=== PATIENT | female | born 1945 | race Caucasian/White ===

== ENCOUNTER 2017-01-18 12:52 | Inpatient (IN) | payer OTHER ==
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
--- NOTE | 2017-01-18 14:18 | EDPHY ---
H & P Smoking Status: Never smoked Time Seen by Provider: 01/18/17 14:00 HPI/ROS: CHIEF COMPLAINT: Here for ECT HISTORY OF PRESENT ILLNESS: 71-year-old female with a history of depression presents for medical clearance for ECT. She has a long history of depression and is unable to take antidepressive medications. Recently the depression has worsened and she has decided to try ECT. She has ongoing intermittent suicidal ideation, but no active suicidal ideation and no plan. She has occasional homicidal ideation, but not recently. No recent illness. She has a history of hypothyroidism, without change in medications. REVIEW OF SYSTEMS: Constitutional: No fever, no chills Eyes: No visual changes ENT: No sore throat Respiratory: No cough, no shortness of breath Cardiac: No chest pain Gastrointestinal: No nausea, no vomiting, no abdominal pain Genitourinary: no dysuria Musculoskeletal: No leg pain or swelling Skin: No rash Neurological: No headache, no weakness (Khadra Kaufman) Past Medical/Surgical History: Depression Hypothyroidism (Kharda Kaufman) Social History: (Khadra Kaufman) Physical Exam: General Appearance: Alert, pleasant, smiling Eyes: Pupils equal and round, no conjunctival pallor or injection ENT, Mouth: Mucous membranes moist Neck: Normal inspection Respiratory: Lungs are clear to auscultation Cardiovascular: Regular rate and rhythm Gastrointestinal: Abdomen is soft and nontender Neurological: A&O, nonfocal, normal gait Skin: Warm and dry, no rash Extremities: Nontender, no pedal edema Psychiatric: Mood and affect normal (Khadra Kaufman) Constitutional: Initial Vital Signs Temperature (C) 36.5 C 01/18/17 13:06 Heart Rate 58 L 01/18/17 13:06 Respiratory Rate 20 01/18/17 13:06 Blood Pressure 135/98 H 01/18/17 13:06 O2 Sat (%) 98 01/18/17 13:06 O2 Delivery Mode Room Air Allergies/Adverse Reactions: Kkzpuwj-Rsb-Vlo Reductase Inhibitor Allergy (Verified 01/18/17 13:04) pain meds Allergy (Uncoded 01/18/17 13:05) psychotropics Allergy (Uncoded 01/18/17 13:05) Home Medications: Medication Instructions Recorded Levothyroxine 01/18/17 Timolol 0.25% 01/18/17 Vitamin B12 01/18/17 Medical Decision Making - Diagnostics EKG Interpretation: EKG interpreted by me reveals sinus rhythm, rate 53, left anterior fascicular block, poor R-wave progression. (Khadra Kaufman) ED Course/Re-evaluation: The patient has been medically cleared. She has been accepted for voluntary psychiatric hospitalization here at [facility] by Dr. Blackburn for ECT therapy tomorrow. I have filled out the EMTALA transfer form. (Portillo Cabrera) Other Provider: I assumed care of the patient at 3:00 p.m.. (Portillo Cabrera) - Data Points Laboratory Results: Laboratory Results 01/18/17 14:30 01/18/17 14:30 01/18/17 01/18/17 01/18/17 14:30 14:30 13:15 WBC 7.00 10^3/uL 10^3/uL (3.80-9.50) RBC 4.82 10^6/uL 10^6/uL (4.18-5.33) Hgb 15.3 g/dL g/dL (12.6-16.3) Hct 43.6 % % (38.0-47.0) MCV 90.5 fL fL (81.5-99.8) MCH 31.7 pg pg (27.9-34.1) MCHC 35.1 g/dL g/dL (32.4-36.7) RDW 13.4 % % (11.5-15.2) Plt Count 371 10^3/uL 10^3/uL (150-400) MPV 9.0 fL fL (8.7-11.7) Neut % (Auto) 70.6 % % (39.3-74.2) Lymph % (Auto) 20.3 % % (15.0-45.0) [place] % (Auto) 6.7 % % (4.5-13.0) Eos % (Auto) 1.3 % % (0.6-7.6) Baso % (Auto) 0.7 % % (0.3-1.7) Nucleat RBC Rel Count 0.0 % % (0.0-0.2) Absolute Neuts (auto) 4.94 10^3/uL 10^3/uL (1.70-6.50) Absolute Lymphs (auto) 1.42 10^3/uL 10^3/uL (1.00-3.00) Absolute Monos (auto) 0.47 10^3/uL 10^3/uL (0.30-0.80) Absolute Eos (auto) 0.09 10^3/uL 10^3/uL (0.03-0.40) Absolute Basos (auto) 0.05 10^3/uL 10^3/uL (0.02-0.10) Absolute Nucleated RBC 0.00 10^3/uL 10^3/uL (0-0.01) Immature Gran % 0.4 % % (0.0-1.1) Immature Gran # 0.03 10^3/uL 10^3/uL (0.00-0.10) Sodium 143 mEq/L mEq/L (134-144) Potassium 4.2 mEq/L mEq/L (3.5-5.2) Chloride 105 mEq/L mEq/L (97-110) Carbon Dioxide 22 mEq/l mEq/l (22-31) Anion Gap 16 mEq/L mEq/L (8-16) BUN 17 mg/dL mg/dL (7-23) Creatinine 0.7 mg/dL mg/dL (0.6-1.0) Estimated GFR > 60 Glucose 110 mg/dL H mg/dL (70-100) Calcium 10.2 mg/dL mg/dL (8.5-10.4) TSH 4.090 uIU/mL uIU/mL (0.465-4.680) Urine Opiates Screen NEGATIVE (NEGATIVE) Urine Barbiturates NEGATIVE (NEGATIVE) Ur Phencyclidine Scrn NEGATIVE (NEGATIVE) Ur Amphetamine Screen NEGATIVE (NEGATIVE) U Benzodiazepines Scrn NON-NEGATIVE H (NEGATIVE) Urine Cocaine Screen NEGATIVE (NEGATIVE) U Marijuana (THC) Screen NON-NEGATIVE H (NEGATIVE) Ethyl Alcohol < 10 mg/dL mg/dL (0-10) Departure - Departure Disposition: [facility] IP Condition: Good Instructions: Depression (ED) Referrals: GIOVANNA ADLER [Other] - As per Instructions
[2017-01-18 14:45] LABS: % IMMATURE GRANULYOCYTES 0.4 % (0.0-1.1); ABSOLUTE IMMATURE GRANULOCYTES 0.03 10^3/uL (0.00-0.10); ADD DIFF? NO; ADD MORPH? NO; ADD SCAN? NO; ATYPICAL LYMPHOCYTE FLAG 0 (0-99); FRAGMENT RBC FLAG 0 (0-99); HEMATOCRIT 43.6 % (38.0-47.0); HEMOGLOBIN 15.3 g/dL (12.6-16.3); LEFT SHIFT FLG 0 (0-99); LIPEMIA HEMOLYSIS FLAG 90 (0-99); MEAN CELL HEMOGLOBIN 31.7 pg (27.9-34.1); MEAN CELL HEMOGLOBIN CONCENTR. 35.1 g/dL (32.4-36.7); MEAN CELL VOLUME 90.5 fL (81.5-99.8); PLATELET CLUMPS FLAG 10 (0-99); PLATELET COUNT 371 10^3/uL (150-400); RED BLOOD CELL COUNT 4.82 10^6/uL (4.18-5.33); RED CELL DISTRIBUTION WIDTH 13.4 % (11.5-15.2)
[2017-01-18 14:58] LABS: ANION GAP 16 mEq/L (8-16); CALCIUM 10.2 mg/dL (8.5-10.4); CARBON DIOXIDE 22 mEq/l (22-31); CHLORIDE 105 mEq/L (97-110); CREATININE 0.7 mg/dL (0.6-1.0); ETHANOL SERUM < 10 mg/dL (0-10); GLOMERULAR FILTRATION RATE > 60; GLUCOSE 110 mg/dL (70-100); POTASSIUM 4.2 mEq/L (3.5-5.2); SODIUM 143 mEq/L (134-144)
--- NOTE | 2017-01-18 15:19 | CPEKG ---
Heart Rate: 53 RR Interval: 1132 P-R Interval: 196 QRSD Interval: 86 QT Interval: 436 QTC Interval: 410 P [place]: 66 QRS [place]: -77 T Wave [place]: 42 EKG Severity - ABNORMAL ECG - EKG Impression: SINUS RHYTHM EKG Impression: PROBABLE LEFT ATRIAL ABNORMALITY EKG Impression: LEFT ANTERIOR FASCICULAR BLOCK EKG Impression: CONSIDER ANTERIOR INFARCT Electronically Signed By: Khadra Kaufman 18-Jan-2017 15:33:18
[2017-01-18] MEDS ORDERED: MAG HYDROX/AL HYDROX/SIMETH 30 ML UDCUP PO PRN (21:54)
[2017-01-18] MEDS ORDERED: NICOTINE POLACRILEX 2 MG GUM B PRN (21:55)
[2017-01-18] MEDS: ACETAMINOPHEN 325 MG TAB PO PRN (23:32)
[2017-01-19] MEDS ORDERED: DORZOLAMIDE/TIMOLOL 10 ML OPHT.BTL RTEYE SCH (09:00)
[2017-01-19] MEDS ORDERED: ONDANSETRON DISINTEGRATING 4 MG TAB ONE (11:22)
[2017-01-19] MEDS ORDERED: CITRIC ACID/SODIUM CITRATE 30 ML UDCUP ONE (11:22)
[2017-01-19] MEDS ORDERED: MIDAZOLAM 2 MG/2 ML VIAL ONE (11:49)
[2017-01-19] MEDS ORDERED: fentaNYL 100 MCG/2 ML INJ ONE (11:49)
[2017-01-19] MEDS ORDERED: ETOMIDATE 20 MG/10 ML VIAL ONE (12:10)
--- NOTE | 2017-01-19 14:35 | BCON ---
[f rep st] BEHAVIORAL HEALTH CONSULTATION INTERNAL MEDICINE CONSULTATION REFERRING PHYSICIAN: Melissa Blackburn MD REASON FOR REFERRAL: Medical clearance for inpatient behavioral health stay. HISTORY OF PRESENT ILLNESS: This patient came to [facility] for ECT. She has a long history of depression, which has ultimately been either refractory to antidepressant medications, or she has been intolerant to the medications. She was evaluated by Psychiatry for ECT and considered a good candidate, and she had her 1st treatment today. She is presently without any acute complaints, other than feeling sleepy after ECT. PAST MEDICAL HISTORY: 1. Depression. 2. Hypothyroidism. 3. Osteoporosis. 4. Dyslipidemia. 5. Nephrolithiasis. 6. 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 7. Vitamin D deficiency. PAST SURGICAL HISTORY: She has had: 1. . 2. Bunionectomy. 3. Appendectomy. 4. Bilateral cataract surgery. 5. Bilateral shoulder surgery. 6. Bilateral carpal tunnel surgery. 7. Bilateral ulnar nerve transposition. 8. She has had a cardiac evaluation including a nuclear stress test in 2014, which showed no evidence of ischemia and an ejection fraction of 85%. 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 She is not a smoker or an alcohol user. She uses marijuana on occasion to assist in getting to sleep. She lives with her . She has a son in [place]. MEDICATIONS: Prior to admission: 1. Cyanocobalamin 1000 mcg p.o. daily. 2. Dorzolamide/timolol 1 drop right eye twice daily. 3. Diazepam 10 mg p.o. twice daily p.r.n. 4. Levothyroxine 88 mcg p.o. at bedtime. 5. Alprazolam 1 mg p.o. twice daily. FAMILY HISTORY: Noncontributory. REVIEW OF SYSTEMS: She reports that she feels sleepy. She has right neck pain and right jaw pain, and wonders if the jaw pain is due to the ECT. She denies cough or dyspnea. She denies chest pain, including when her blood pressure was markedly elevated in the emergency department. She denies shortness of breath. She denies palpitations. She denies nausea, vomiting, constipation, or diarrhea. She denies dysuria. Otherwise, a 10-point review of systems is negative. PHYSICAL EXAM: VITAL SIGNS: Blood pressure is 118/56, heart rate is 47, respiratory rate is 12, oxygen saturation is 93% on room air. Temperature is 36.4. Her blood pressure was as high as 200/98 yesterday evening with a pulse of 140, and she reports that she was upset at that time. Her weight is 49 kg for a body mass index of 18.7. GENERAL: This is a well-nourished, well- developed woman, appears her chronologic age, cooperative and in no acute distress. HEENT: Extraocular movements are intact. Pupils are equal, round, reactive to light. Mucous membranes are moist. Dentition is in good condition. NECK: Supple. HEART: There is a regular rate and rhythm with no murmurs, rubs, or gallops. LUNGS: Clear to auscultation bilaterally. ABDOMEN : Soft, nontender, nondistended with normoactive bowel sounds, and no bruits. EXTREMITIES: There is no cyanosis, clubbing, or edema. NEUROLOGIC: She is alert and oriented x3. Cranial nerves 2-12 are grossly intact. There is no focal weakness and sensation is intact to light touch. LABORATORY STUDIES: Drawn in the emergency department, CBC was within normal limits. Serum chemistry showed a slightly high glucose at 110, but this was likely not fasting. Otherwise, renal function and electrolytes were within normal limits. TSH was normal at 4.09. Toxicology screen in the serum was negative for ethyl alcohol, and the urine was non-negative for benzodiazepines and marijuana. ASSESSMENT/RECOMMENDATIONS: 1. Right neck pain with a history of cervical dystonia. She says that she manages this with exercises and she is not requesting pain medications. There was a prescription for acetaminophen and she took a dose last night, and this should be adequate. 2. Hypothyroidism, on adequate replacement. 3. Left anterior fascicular block. Given that she had no cardiac symptoms with her very high blood pressure and pulse yesterday, that can be considered equivalent to a stress test, and she had a negative nuclear cardiac evaluation in 2015. Doubt that she has any cardiac disease that would preclude electroconvulsive therapy or any psychiatric medications. 4. Possible glaucoma. Continue dorzolamide/timolol. 5. Right jaw pain. Query whether this had anything to do with electroconvulsive therapy. I will leave further evaluation of that question to Psychiatry. I see no medical contraindications to this patient's continued stay on the inpatient behavioral health unit, or to any psychiatric medications or procedures. Thank you very much for including me in the care of this patient. Please do not hesitate to contact me or the Hospitalist service should there be need for further medical evaluation. /[id number]/MODL MTDD
[2017-01-19] MEDS ORDERED: CYANO/VITAMIN B12 1000 MCG TAB PO SCH (15:30)
--- NOTE | 2017-01-19 15:44 | SOAPPROG ---
SOAP Progress Note Assessment/Plan: Assessment: Plan: 01/19/17 15:45 Pt is anxious, though appropriate. Antagonistic, irritable nature is not unexpected given obvious aspects of her history and personality. She agrees to participate more willingly and accept unit rules. We agree that if she is not able to I will assist her in relocating to a more agreeable setting. Will [facility] inc: acute course ECT. Subjective: Pt seen, discussed with staff. I sat with patient and her to review the plan for inpatient care. She has been antagonistic and irritable, questioning rules and arguing with staff. We discussed how her treatment here is voluntary and I offered to find her placement elsewhere or help her make necessary arrangements for outpatient treatment. She declines this and states she believes she can "just keep my mouth shut." I emphasized that I understand it is not the most comfortable or desirable environment, especially for a high- functioning individual. I tried to suggest that by agreeing to unit rules and not debating or arguing, she may find some peace. She was doubtful about this. Underwent RUL UBP ECT this afternoon without complication. Excellent event with good organization, good amplitude and frequency, good morphology and excellent suppression. Seizure lasted >120 sec. Good recovery with no complications. Objective: Vital Signs Temp Pulse Resp BP Pulse Ox 36.4 C 51 L 12 152/70 H 97 01/19/17 12:58 01/19/17 14:16 01/19/17 14:16 01/19/17 14:16 01/19/17 14:16 MSE: Calm, coop. Affect is irritable, constricted, smiling at times. Mood is "not good." TP linear. TC reveals no psychosis. Continues to experience SI with no current intent or plan. - Time Spent With Patient Time Spent With Patient: 45" ICD10 Worksheet Patient Problems: Problems Problem Status Onset Major depressive disorder, recurrent severe without psychotic features Acute - ICD10 Problem Qualifiers (1) Major depressive disorder, recurrent severe without psychotic features
[2017-01-19] MEDS: CYANO/VITAMIN B12 1000 MCG TAB PO SCH (17:06)
[2017-01-19] MEDS: DORZOLAMIDE/TIMOLOL 10 ML OPHT.BTL RTEYE SCH (21:14)
[2017-01-19] MEDS: CARBOXYMETHYLCELLULOSE 0.5% 0.4 ML DROPERETTE RTEYE PRN (21:15)
[2017-01-19] MEDS: LEVOTHYROXINE 88 MCG TAB PO SCH (21:16)
[2017-01-19] MEDS: LORazepam 0.5 MG TAB PO PRN (22:45)
[2017-01-20] MEDS: DORZOLAMIDE/TIMOLOL 10 ML OPHT.BTL RTEYE SCH ×2 (08:10→18:58)
[2017-01-20] MEDS: CYANO/VITAMIN B12 1000 MCG TAB PO SCH (08:11)
[2017-01-20] MEDS: CARBOXYMETHYLCELLULOSE 0.5% 0.4 ML DROPERETTE RTEYE PRN (08:11)
--- NOTE | 2017-01-20 16:58 | SOAPPROG ---
SOAP Progress Note Assessment/Plan: Assessment: Plan: 01/19/17 15:45 Pt is anxious, though appropriate. Antagonistic, irritable nature is not unexpected given obvious aspects of her history and personality. She agrees to participate more willingly and accept unit rules. We agree that if she is not able to I will assist her in relocating to a more agreeable setting. Will [facility] inc: acute course ECT. 01/20/17 16:58 TRD: Remains dysphoric, irritable, antagonistic. Despite this, she is invested in recovery and not a behavioral problem. Will [facility], monitor. Allow AG so pt can have a break from milieu and visit with pets. Subjective: Pt seen, discussed with staff. Reports feeling "about the same." Tolerated ECT well with no complications and minimal h/a despite prolonged seizure. She remains rather antagonistic, frequently arguing with staff, resisting rules, refusing to complete assessments or attend groups because they are essentially beneath her. I discussed this with her at length again and she can only resolve this to the end of saying again, "I'll keep my mouth shut but I don't have to like it." Objective: Vital Signs Temp Pulse Resp BP Pulse Ox 36.7 C 61 14 143/68 H 96 01/20/17 06:00 01/20/17 06:00 01/20/17 06:00 01/20/17 06:00 01/20/17 06:00 MSE: Calm, coop. Affect is blunted, somewhat dysphoric, stable, approp. Mood is "not good...the same." TP linear. TC reveals no psychosis. SI persists, though pt insistent she is safe while here and is invested in ECT treatment. - Time Spent With Patient Time Spent With Patient: 35" ICD10 Worksheet Patient Problems: Problems Problem Status Onset Major depressive disorder, recurrent severe without psychotic features Acute - ICD10 Problem Qualifiers (1) Major depressive disorder, recurrent severe without psychotic features
[2017-01-20] MEDS: LEVOTHYROXINE 88 MCG TAB PO SCH (18:58)
[2017-01-20] MEDS ORDERED: LORazepam 1 MG TAB PO ONE (19:00)
[2017-01-21] MEDS ORDERED: ONDANSETRON DISINTEGRATING 4 MG TAB PO ONE (05:00)
[2017-01-21] MEDS ORDERED: NS 1,000 ML IV ONE (05:00)
[2017-01-21] MEDS ORDERED: LIDOCAINE 2% 5 ML SDV ID ONE (05:00)
[2017-01-21] MEDS ORDERED: CITRIC ACID/SODIUM CITRATE 30 ML UDCUP PO ONE (05:00)
[2017-01-21] MEDS ORDERED: CITRIC ACID/SODIUM CITRATE 30 ML UDCUP ONE (06:55)
[2017-01-21] MEDS ORDERED: MIDAZOLAM 2 MG/2 ML VIAL ONE (06:57)
[2017-01-21] MEDS ORDERED: ROCURONIUM 50 MG/5 ML VIAL ONE (06:57)
[2017-01-21] MEDS ORDERED: fentaNYL 100 MCG/2 ML INJ ONE (06:57)
[2017-01-21] MEDS ORDERED: ETOMIDATE 20 MG/10 ML VIAL ONE (06:57)
[2017-01-21] MEDS ORDERED: GLYCOPYRROLATE 0.2 MG/1 ML VIAL ONE (06:57)
[2017-01-21] MEDS ORDERED: PROPOFOL 200 MG/20 ML VIAL ONE (06:57)
[2017-01-21] MEDS ORDERED: SUCCINYLCHOLINE CHLORIDE 200 MG/10 ML VIAL ONE (06:58)
[2017-01-21] MEDS ORDERED: ONDANSETRON 4 MG/2 ML VIAL ONE (07:00)
[2017-01-21] MEDS: DORZOLAMIDE/TIMOLOL 10 ML OPHT.BTL RTEYE SCH ×2 (08:34→20:36)
[2017-01-21] MEDS: CYANO/VITAMIN B12 1000 MCG TAB PO SCH (08:34)
[2017-01-21] MEDS: CARBOXYMETHYLCELLULOSE 0.5% 0.4 ML DROPERETTE RTEYE PRN ×2 (08:36→20:36)
[2017-01-21] MEDS: LEVOTHYROXINE 88 MCG TAB PO SCH (11:54)
[2017-01-21] MEDS: CEPACOL LOZENGE PO PRN ×2 (13:53→15:01)
--- NOTE | 2017-01-21 17:26 | SOAPPROG ---
SOAP Progress Note Assessment/Plan: Assessment: Plan: 01/19/17 15:45 Pt is anxious, though appropriate. Antagonistic, irritable nature is not unexpected given obvious aspects of her history and personality. She agrees to participate more willingly and accept unit rules. We agree that if she is not able to I will assist her in relocating to a more agreeable setting. Will [facility] inc: acute course ECT. 01/20/17 16:58 TRD: Remains dysphoric, irritable, antagonistic. Despite this, she is invested in recovery and not a behavioral problem. Will [facility], monitor. Allow AG so pt can have a break from milieu and visit with pets. 01/21/17 17:29 TRD: Remains dysphoric, difficult. Tolerating ECT well. Will [facility], inc: building therapeutic alliance. Subjective: Pt seen, discussed with staff. Remains irritable, antagonistic, even hostile at time towards staff. Finds fault with almost every suggested intervention or questionnaire. Quite irritable before ECT this morning. Stated to staff earlier that she "hates being in this [expletive] place." States she wants to go home. She does not report this to me. Underwent RUL UBP ECT without complication. Good event. Objective: Vital Signs Temp Pulse Resp BP Pulse Ox 36.3 C 95 15 154/81 H 96 01/21/17 08:05 01/21/17 11:35 01/21/17 11:35 01/21/17 11:35 01/21/17 11:35 MSE: Irritable, antagonistic. Affect is o/w constricted, dysphoric, stable. Mood is "terrible." TP linear. TC reveals no psychosis. Cognition is good. A& Ox4, sensorium is clear. - Time Spent With Patient Time Spent With Patient: 35" ICD10 Worksheet Patient Problems: Problems Problem Status Onset Major depressive disorder, recurrent severe without psychotic features Acute - ICD10 Problem Qualifiers (1) Major depressive disorder, recurrent severe without psychotic features
[2017-01-21] MEDS: LORazepam 0.5 MG TAB PO PRN (22:32)
[2017-01-22] MEDS: CARBOXYMETHYLCELLULOSE 0.5% 0.4 ML DROPERETTE RTEYE PRN ×2 (08:56→18:59)
[2017-01-22] MEDS: CYANO/VITAMIN B12 1000 MCG TAB PO SCH (08:56)
[2017-01-22] MEDS: LEVOTHYROXINE 88 MCG TAB PO SCH (08:56)
[2017-01-22] MEDS: DORZOLAMIDE/TIMOLOL 10 ML OPHT.BTL RTEYE SCH ×2 (08:56→18:57)
[2017-01-22] MEDS: DOCUSATE SODIUM 100 MG CAP PO SCH (08:56)
[2017-01-22] MEDS: PSYLLIUM METAMUCIL 1 PKT PO SCH (12:49)
[2017-01-22] MEDS ORDERED: LORazepam 1 MG TAB PO ONE (19:00)
[2017-01-23] MEDS ORDERED: LIDOCAINE 2% 5 ML SDV ID ONE (05:00)
[2017-01-23] MEDS ORDERED: CITRIC ACID/SODIUM CITRATE 30 ML UDCUP PO ONE (05:00)
[2017-01-23] MEDS ORDERED: NS 1,000 ML IV ONE (05:00)
[2017-01-23] MEDS ORDERED: ONDANSETRON DISINTEGRATING 4 MG TAB PO ONE (05:00)
[2017-01-23] MEDS: DORZOLAMIDE/TIMOLOL 10 ML OPHT.BTL RTEYE SCH ×2 (05:27→21:01)
[2017-01-23] MEDS: LEVOTHYROXINE 88 MCG TAB PO SCH (05:27)
[2017-01-23] MEDS: CARBOXYMETHYLCELLULOSE 0.5% 0.4 ML DROPERETTE RTEYE PRN (05:28)
[2017-01-23] MEDS ORDERED: MIDAZOLAM 2 MG/2 ML VIAL ONE (06:47)
[2017-01-23] MEDS ORDERED: fentaNYL 100 MCG/2 ML INJ ONE (06:47)
[2017-01-23] MEDS ORDERED: ONDANSETRON DISINTEGRATING 4 MG TAB ONE (07:30)
[2017-01-23] MEDS ORDERED: CITRIC ACID/SODIUM CITRATE 30 ML UDCUP ONE (07:30)
[2017-01-23] MEDS: DOCUSATE SODIUM 100 MG CAP PO SCH (09:00)
[2017-01-23] MEDS: PSYLLIUM METAMUCIL 1 PKT PO SCH (09:00)
[2017-01-23] MEDS: CYANO/VITAMIN B12 1000 MCG TAB PO SCH (09:00)
--- NOTE | 2017-01-23 15:54 | SOAPPROG ---
SOAP Progress Note Assessment/Plan: Assessment: Plan: 01/19/17 15:45 Pt is anxious, though appropriate. Antagonistic, irritable nature is not unexpected given obvious aspects of her history and personality. She agrees to participate more willingly and accept unit rules. We agree that if she is not able to I will assist her in relocating to a more agreeable setting. Will [facility] inc: acute course ECT. 01/20/17 16:58 TRD: Remains dysphoric, irritable, antagonistic. Despite this, she is invested in recovery and not a behavioral problem. Will [facility], monitor. Allow AG so pt can have a break from milieu and visit with pets. 01/21/17 17:29 TRD: Remains dysphoric, difficult. Tolerating ECT well. Will [facility], inc: building therapeutic alliance. 01/23/17 15:55 TRD: No change in mood. Continues to act out. [facility]. Subjective: LATE ENTRY FOR 01/22/17. Pt seen, discussed with staff. Reports continued frustrations with unit and milieu. Unable to separate herself from this, frequently arguing with and yelling at lower functioning patients. We discussed at length again her maladaptive response to current stressors and situation. She states she is essentially powerless to resist acting on these aggressive impulses. She is also angry that we did not warn her about constipation. She states she hasn't had a BM in five days and is upset about this stating that we are essentially incompetent not to have anticipated this. She is not, however, eating significant amounts due to her level of dislike for the hospital food. She refuses to order out, however. Objective: Vital Signs Temp Pulse Resp BP Pulse Ox 36.7 C 60 14 168/78 H 96 01/23/17 11:49 01/23/17 11:49 01/23/17 11:49 01/23/17 11:49 01/23/17 11:49 MSE: Angry, oppositional, though pleasant and interactive on 1:1. Affect is o/ w dysphoric, constricted, stable. Mood is "terrible." TP linear. TC reveals no psychosis. - Time Spent With Patient Time Spent With Patient: 35" ICD10 Worksheet Patient Problems: Problems Problem Status Onset Major depressive disorder, recurrent severe without psychotic features Acute - ICD10 Problem Qualifiers (1) Major depressive disorder, recurrent severe without psychotic features
--- NOTE | 2017-01-23 15:58 | SOAPPROG ---
ILIA[place] Progress Note Assessment/Plan: Assessment: Plan: 01/19/17 15:45 Pt is anxious, though appropriate. Antagonistic, irritable nature is not unexpected given obvious aspects of her history and personality. She agrees to participate more willingly and accept unit rules. We agree that if she is not able to I will assist her in relocating to a more agreeable setting. Will [facility] inc: acute course ECT. 01/20/17 16:58 TRD: Remains dysphoric, irritable, antagonistic. Despite this, she is invested in recovery and not a behavioral problem. Will [facility], monitor. Allow AG so pt can have a break from milieu and visit with pets. 01/21/17 17:29 TRD: Remains dysphoric, difficult. Tolerating ECT well. Will [facility], inc: building therapeutic alliance. 01/23/17 15:55 TRD: No change in mood. Continues to act out. [facility]. 01/23/17 15:58 TRD: No change thus far. [facility]. Subjective: Pt seen, discussed with staff. Reports feeling "terrible." Angry and insulting to staff and myself this morning. Underwent ECT wtihout complication. She returned to unit and refused to lie down, choosing to stand at the nurses' station and talk loudly on the phone to her , yelling and swearing that she "hates this f----ing place" and multiple other expletive strewn statements directed against the facility, the staff, the food and the other patients. Objective: Vital Signs Temp Pulse Resp BP Pulse Ox 36.7 C 60 14 168/78 H 96 01/23/17 11:49 01/23/17 11:49 01/23/17 11:49 01/23/17 11:49 01/23/17 11:49 - Time Spent With Patient Time Spent With Patient: 35" ICD10 Worksheet Patient Problems: Problems Problem Status Onset Major depressive disorder, recurrent severe without psychotic features Acute - ICD10 Problem Qualifiers (1) Major depressive disorder, recurrent severe without psychotic features
[2017-01-23] MEDS: LORazepam 0.5 MG TAB PO PRN (22:45)
[2017-01-24] MEDS: CARBOXYMETHYLCELLULOSE 0.5% 0.4 ML DROPERETTE RTEYE PRN (07:43)
[2017-01-24] MEDS: PSYLLIUM METAMUCIL 1 PKT PO SCH (07:43)
[2017-01-24] MEDS: DOCUSATE SODIUM 100 MG CAP PO SCH (07:43)
[2017-01-24] MEDS: DORZOLAMIDE/TIMOLOL 10 ML OPHT.BTL RTEYE SCH ×2 (07:43→21:08)
[2017-01-24] MEDS: CYANO/VITAMIN B12 1000 MCG TAB PO SCH (07:44)
[2017-01-24] MEDS: LEVOTHYROXINE 88 MCG TAB PO SCH (09:12)
--- NOTE | 2017-01-24 13:34 | SOAPPROG ---
SOAP Progress Note Assessment/Plan: Assessment: Per Dr. Murillo's notes: 01/19/17 15:45 Pt is anxious, though appropriate. Antagonistic, irritable nature is not unexpected given obvious aspects of her history and personality. She agrees to participate more willingly and accept unit rules. We agree that if she is not able to I will assist her in relocating to a more agreeable setting. Will [facility] inc: acute course ECT. 01/20/17 16:58 TRD: Remains dysphoric, irritable, antagonistic. Despite this, she is invested in recovery and not a behavioral problem. Will [facility], monitor. Allow AG so pt can have a break from milieu and visit with pets. 01/21/17 17:29 TRD: Remains dysphoric, difficult. Tolerating ECT well. Will [facility], inc: building therapeutic alliance. 01/23/17 15:55 TRD: No change in mood. Continues to act out. [facility]. 01/23/17 15:58 TRD: No change thus far. [facility]. Plan: 01/24/17 13:31 1. [facility] - patient remains angry, critical, but willing to remain in hospital b/c she has "nowhere else to go" for another week 2. Continue with ECT on 01/26/17 Subjective: Met with patient, reviewed chart and d/w staff. Patient is extremely critical of hospital and staff. She says "everything here sucks." She c/o constipation and says nurses have offered her "everything," including prune juice, MOM, colace and "nothing has worked." MD offers a suppository, but patient says "no way." She says she is waiting for her to come from [place] and rent a hotel for them to stay together to complete treatments. She denies any SI/HI. Objective: Vital Signs Temp Pulse Resp BP Pulse Ox 36.4 C 92 15 138/84 H 95 01/24/17 07:12 01/24/17 07:12 01/24/17 07:12 01/24/17 07:12 01/24/17 07:12 MSE: Angry, critical, but cooperative. Affect: Angry, depressed Mood: "Sucks" TP: Linear TC: Denies any SI/HI, no AH/VH Insight/Judgment: Poor - Time Spent With Patient Time Spent With Patient: 20" - Pending Discharge Pending Discharge Within 24 Hours: No Pending Discharge Within 48 Hours: No ICD10 Worksheet Patient Problems: Problems Problem Status Onset Major depressive disorder, recurrent severe without psychotic features Acute
[2017-01-24] MEDS: LORazepam 0.5 MG TAB PO PRN (21:58)
[2017-01-24] MEDS: MAGNESIUM HYDROXIDE 30 ML UDCUP PO PRN (21:58)
[2017-01-25] MEDS: DORZOLAMIDE/TIMOLOL 10 ML OPHT.BTL RTEYE SCH ×2 (08:44→18:29)
[2017-01-25] MEDS: PSYLLIUM METAMUCIL 1 PKT PO SCH (08:44)
[2017-01-25] MEDS: CYANO/VITAMIN B12 1000 MCG TAB PO SCH (08:44)
[2017-01-25] MEDS: LEVOTHYROXINE 88 MCG TAB PO SCH (08:44)
[2017-01-25] MEDS: CARBOXYMETHYLCELLULOSE 0.5% 0.4 ML DROPERETTE RTEYE PRN (08:44)
[2017-01-25] MEDS: DOCUSATE SODIUM 100 MG CAP PO SCH (08:45)
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
[2017-01-25] MEDS: POLYETHYLENE GLYCOL 3350 17 GM PKT PO PRN (14:02)
[2017-01-25] MEDS: LORazepam 0.5 MG TAB PO PRN (18:29)
[2017-01-25] MEDS: MAGNESIUM HYDROXIDE 30 ML UDCUP PO PRN (18:29)
[2017-01-26] MEDS ORDERED: LIDOCAINE 2% 5 ML SDV ID ONE (05:00)
[2017-01-26] MEDS ORDERED: NS 1,000 ML IV ONE (05:00)
[2017-01-26] MEDS ORDERED: CITRIC ACID/SODIUM CITRATE 30 ML UDCUP PO ONE (05:00)
[2017-01-26] MEDS ORDERED: ONDANSETRON DISINTEGRATING 4 MG TAB PO ONE (05:00)
[2017-01-26] MEDS ORDERED: LIDOCAINE 2% 5 ML SDV ONE (05:48)
[2017-01-26] MEDS ORDERED: ONDANSETRON DISINTEGRATING 4 MG TAB ONE (06:12)
[2017-01-26] MEDS ORDERED: CITRIC ACID/SODIUM CITRATE 30 ML UDCUP ONE (06:12)
[2017-01-26] MEDS ORDERED: MIDAZOLAM 2 MG/2 ML VIAL ONE (06:54)
[2017-01-26] MEDS ORDERED: fentaNYL 100 MCG/2 ML INJ ONE (06:54)
[2017-01-26] MEDS ORDERED: SUCCINYLCHOLINE CHLORIDE 200 MG/10 ML VIAL ONE (06:54)
[2017-01-26] MEDS ORDERED: ETOMIDATE 20 MG/10 ML VIAL ONE (06:54)
[2017-01-26] MEDS ORDERED: ONDANSETRON 4 MG/2 ML VIAL ONE (07:02)
[2017-01-26] MEDS: CYANO/VITAMIN B12 1000 MCG TAB PO SCH (07:59)
[2017-01-26] MEDS: DOCUSATE SODIUM 100 MG CAP PO SCH (07:59)
[2017-01-26] MEDS: LEVOTHYROXINE 88 MCG TAB PO SCH (07:59)
[2017-01-26] MEDS: ACETAMINOPHEN 325 MG TAB PO PRN (08:01)
[2017-01-26] MEDS: DORZOLAMIDE/TIMOLOL 10 ML OPHT.BTL RTEYE SCH (08:12)
[2017-01-26] MEDS: CARBOXYMETHYLCELLULOSE 0.5% 0.4 ML DROPERETTE RTEYE PRN (11:55)
[2017-01-26] MEDS: PSYLLIUM METAMUCIL 1 PKT PO SCH (11:59)
[2017-01-26] MEDS: POLYETHYLENE GLYCOL 3350 17 GM PKT PO PRN (14:06)
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
[2017-01-26] MEDS: LORazepam 0.5 MG TAB PO PRN (22:17)
[2017-01-27] MEDS: PSYLLIUM METAMUCIL 1 PKT PO SCH (07:57)
[2017-01-27] MEDS: CYANO/VITAMIN B12 1000 MCG TAB PO SCH (07:57)
[2017-01-27] MEDS: CARBOXYMETHYLCELLULOSE 0.5% 0.4 ML DROPERETTE RTEYE PRN ×2 (07:57→19:48)
[2017-01-27] MEDS: DORZOLAMIDE/TIMOLOL 10 ML OPHT.BTL RTEYE SCH ×2 (07:57→19:47)
[2017-01-27] MEDS: DOCUSATE SODIUM 100 MG CAP PO SCH (07:58)
[2017-01-27] MEDS: LEVOTHYROXINE 88 MCG TAB PO SCH (09:38)
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
[2017-01-27] MEDS: MAGNESIUM HYDROXIDE 30 ML UDCUP PO PRN (14:56)
[2017-01-28] MEDS ORDERED: CITRIC ACID/SODIUM CITRATE 30 ML UDCUP ONE (06:35)
[2017-01-28] MEDS ORDERED: fentaNYL 100 MCG/2 ML INJ ONE (06:41)
[2017-01-28] MEDS ORDERED: MIDAZOLAM 2 MG/2 ML VIAL ONE (06:41)
[2017-01-28] MEDS ORDERED: ONDANSETRON 4 MG/2 ML VIAL ONE (06:41)
[2017-01-28] MEDS ORDERED: SUCCINYLCHOLINE CHLORIDE 200 MG/10 ML VIAL ONE (06:41)
[2017-01-28] MEDS ORDERED: ETOMIDATE 20 MG/10 ML VIAL ONE (06:41)
[2017-01-28] MEDS ORDERED: KETOROLAC 30 MG/1 ML SDV ONE (06:52)
[2017-01-28] MEDS ORDERED: ATROPINE SULFATE 1 MG/10 ML SYR ONE (06:55)
[2017-01-28] MEDS ORDERED: LORazepam 1 MG TAB PO ONE (08:41)
[2017-01-28] MEDS: DOCUSATE SODIUM 100 MG CAP PO SCH (08:42)
[2017-01-28] MEDS: PSYLLIUM METAMUCIL 1 PKT PO SCH (08:42)
[2017-01-28] MEDS: LORazepam 0.5 MG TAB PO PRN ×2 (08:42→09:33)
[2017-01-28] MEDS: DORZOLAMIDE/TIMOLOL 10 ML OPHT.BTL RTEYE SCH ×2 (08:46→22:21)
[2017-01-28] MEDS: CYANO/VITAMIN B12 1000 MCG TAB PO SCH (08:46)
[2017-01-28] MEDS: CARBOXYMETHYLCELLULOSE 0.5% 0.4 ML DROPERETTE RTEYE PRN ×2 (08:46→22:21)
[2017-01-28] MEDS: LEVOTHYROXINE 88 MCG TAB PO SCH (09:34)
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
[2017-01-28] MEDS: LORazepam 0.5 MG TAB PO SCH (22:21)
[2017-01-29] MEDS: DORZOLAMIDE/TIMOLOL 10 ML OPHT.BTL RTEYE SCH ×2 (08:44→17:57)
[2017-01-29] MEDS: CYANO/VITAMIN B12 1000 MCG TAB PO SCH (08:44)
[2017-01-29] MEDS: DOCUSATE SODIUM 100 MG CAP PO SCH (08:44)
[2017-01-29] MEDS: CARBOXYMETHYLCELLULOSE 0.5% 0.4 ML DROPERETTE RTEYE PRN ×2 (08:45→17:57)
[2017-01-29] MEDS: LORazepam 0.5 MG TAB PO SCH ×3 (08:45→17:57)
[2017-01-29] MEDS: PSYLLIUM METAMUCIL 1 PKT PO SCH (09:02)
[2017-01-29] MEDS: LEVOTHYROXINE 88 MCG TAB PO SCH (11:08)
[2017-01-29] MEDS ORDERED: LORazepam 1 MG TAB PO ONE (13:45)
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
[2017-01-29] MEDS: amLODIPine BESYLATE 5 MG TAB PO SCH (17:57)
[2017-01-29 17:59] LABS: VITAMIN D 25-HYDROXY TOTAL 59.1 ng/mL (30.0-100.0)
[2017-01-29] MEDS: LORazepam 0.5 MG TAB PO PRN (19:46)
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
[2017-01-30] MEDS ORDERED: NS 1,000 ML IV ONE (04:00)
[2017-01-30] MEDS ORDERED: CITRIC ACID/SODIUM CITRATE 30 ML UDCUP PO ONE (04:00)
[2017-01-30] MEDS ORDERED: LIDOCAINE 2% 5 ML SDV ID ONE (04:00)
[2017-01-30] MEDS ORDERED: ONDANSETRON DISINTEGRATING 4 MG TAB PO ONE (04:00)
[2017-01-30] MEDS ORDERED: ONDANSETRON DISINTEGRATING 4 MG TAB ONE (06:53)
[2017-01-30] MEDS ORDERED: CITRIC ACID/SODIUM CITRATE 30 ML UDCUP ONE (06:53)
[2017-01-30] MEDS: amLODIPine BESYLATE 5 MG TAB PO SCH (06:58)
[2017-01-30] MEDS ORDERED: fentaNYL 100 MCG/2 ML INJ ONE (07:08)
[2017-01-30] MEDS ORDERED: ETOMIDATE 20 MG/10 ML VIAL ONE (07:08)
[2017-01-30] MEDS ORDERED: MIDAZOLAM 2 MG/2 ML VIAL ONE (07:08)
[2017-01-30] MEDS ORDERED: LORazepam 2 MG/ML INJ ONE (07:09)
[2017-01-30] MEDS ORDERED: ONDANSETRON DISINTEGRATING 4 MG TAB PO PRN (08:32)
[2017-01-30] MEDS ORDERED: IBUPROFEN 600 MG TAB PO PRN (08:32)
[2017-01-30] MEDS ORDERED: PROMETHAZINE HCL 25 MG TAB PO PRN (08:32)
[2017-01-30] MEDS ORDERED: HYDROCODONE/APAP 5/325 TAB PO PRN (08:32)
[2017-01-30 08:47] VITALS: TEMP 98.8
[2017-01-30] MEDS: DOCUSATE SODIUM 100 MG CAP PO SCH (11:11)
[2017-01-30] MEDS: DORZOLAMIDE/TIMOLOL 10 ML OPHT.BTL RTEYE SCH (11:11)
[2017-01-30] MEDS: LEVOTHYROXINE 88 MCG TAB PO SCH (11:11)
[2017-01-30] MEDS: CYANO/VITAMIN B12 1000 MCG TAB PO SCH (11:12)
[2017-01-30] MEDS: CARBOXYMETHYLCELLULOSE 0.5% 0.4 ML DROPERETTE RTEYE PRN (11:12)
[2017-01-30] MEDS: LORazepam 0.5 MG TAB PO PRN (11:29)
[2017-01-30 11:31] VITALS: BP 174/98; PULSE 88; RESP 14; O2SAT 96
[2017-01-30] MEDS: LORazepam 0.5 MG TAB PO SCH (11:35)
[2017-01-30] MEDS: PSYLLIUM METAMUCIL 1 PKT PO SCH (11:35)
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
[2017-02-03 11:01] LABS: INTERPRETATION See Comments
== END 2017-01-30 12:08 | disposition home or self-care (01) | DRG 885 ==
LOC: BBEH 18:40
PROVIDERS: ADMIT Psychiatry & Neurology Behavioral Neurology & Neuropsychiatry; ATTEND Psychiatry & Neurology Psychiatry
PROC: GZB4ZZZ Other Electroconvulsive Therapy (ICD-10-PCS; principal; 2017-01-19)
DX: F39 Unspecified mood [affective] disorder (principal); E03.9 Hypothyroidism, unspecified; M81.0 Age-related osteoporosis without current pathological fracture; E78.5 Hyperlipidemia, unspecified; G89.29 Other chronic pain; H40.9 Unspecified glaucoma; I44.4 Left anterior fascicular block
CPT/HCPCS: 80305; 81291-90; 82607-90; 83921-90; G0480; J0330; J0461; J1885; J2060; J2250; J2405; J2704; J3010